=== PATIENT | female | born 1960 | race Caucasian/White ===

== ENCOUNTER 2018-06-14 07:59 | Day surgery (SDC) | payer OTHER ==
[2018-06-14] MEDS ORDERED: PROPOFOL 20 ML ONE ×2 (09:32)
--- NOTE | 2018-06-14 09:36 | PROC ---
Endoscopy Procedure Endoscopy procedure completed. Please see scanned procedure report.
[2018-06-14 11:24] VITALS: BP 146/71; PULSE 51; TEMP 97.8
--- NOTE | 2018-06-15 18:41 | PATH ---
Surgical Pathology Report Patient Name: JADA WATSON [facility]. Rec. #: [id number] /Age/Gender: 1960 (Age: 57) / F Account: [id number] Location: [facility]-ENDOSCOPY Taken: 06/14/2018 Received: 06/14/2018 Reported: 06/15/2018 Physicians: Lee Arana M.D. Specimen(s) Received A: BX ASCENDING COLON POLYP B: BX DESCENDING COLON POLYP C: BX DUODENUM SECOND PORTION D: BX STOMACH GASTRITIS Clinical History History of colon polyp, change in bowel habits, family history of gastric cancer Postoperative diagnosis: Colon polyps, gastritis Final Diagnosis A. ASCENDING COLON POLYP, BIOPSY: POLYPOID COLONIC MUCOSA WITH LYMPHOID AGGREGATES. B. DESCENDING COLON POLYP, POLYPECTOMY: TUBULAR ADENOMA. C. DUODENAL SECOND PORTION, BIOPSY: DUODENAL MUCOSA WITH MILD CHRONIC DUODENITIS. D. GASTRITIS, BIOPSY: GASTRIC MUCOSA WITH MILD CHRONIC GASTRITIS AND FOCAL DILATED GLANDS. IMMUNOSTAIN IS NEGATIVE FOR H. PYLORI ORGANISMS. Electronically Signed Johnnie Crow M.D. Gross Description A. Received in formalin, labeled "biopsy ascending colon polyp" are 2 mendosa, irregular portions of soft tissue measuring 0.2 and 0.4 cm. in greatest dimension. The specimens are submitted in toto in one cassette. B. Received in formalin, labeled "biopsy descending colon polyp" are 3 mendosa, irregular portions of soft tissue ranging from 0.1-0.4 cm. in greatest dimension. The specimens are submitted in toto in one cassette. C. Received in formalin, labeled "biopsy second portion of duodenum" is a mendosa, irregular portion of soft tissue measuring 0.7 cm. in greatest dimension. The specimen is submitted in toto in one cassette. D. Received in formalin, labeled "biopsy gastritis" are 2 mendosa, irregular portions of soft tissue averaging 0.4 cm. in greatest dimension. The specimens are submitted in toto in one cassette. 06/14/201806/14/2018
== END 2018-06-14 11:25 | disposition home or self-care (01) ==
LOC: JASU-ENDO 07:59
PROVIDERS: ATTEND Internal Medicine Gastroenterology
PROC: 0DBM8ZX Excision of Descending Colon, Via Natural or Artificial Opening Endoscopic, Diagnostic (ICD-10-PCS; 2018-06-14)
PROC: 0DB98ZX Excision of Duodenum, Via Natural or Artificial Opening Endoscopic, Diagnostic (ICD-10-PCS; 2018-06-14)
PROC: 0DB68ZX Excision of Stomach, Via Natural or Artificial Opening Endoscopic, Diagnostic (ICD-10-PCS; 2018-06-14)
PROC: 0DBK8ZX Excision of Ascending Colon, Via Natural or Artificial Opening Endoscopic, Diagnostic (ICD-10-PCS; principal; 2018-06-14 09:30)
DX: Z86.010 Personal history of colon polyps (principal); D12.2 Benign neoplasm of ascending colon; D12.4 Benign neoplasm of descending colon; K64.8 Other hemorrhoids; K29.80 Duodenitis without bleeding; K29.50 Unspecified chronic gastritis without bleeding; Z80.0 Family history of malignant neoplasm of digestive organs
CPT/HCPCS: 88305-TC; 88342-TC

== ENCOUNTER 2024-03-25 17:41 | Emergency (ER) | payer OTHER ==
[2024-03-25 17:46] VITALS: BP 131/67; PULSE 66; RESP 18; TEMP 98; BMI 29.4
[2024-03-25] MEDS ORDERED: ACETAMINOPHEN 500 MG TABLET (FP) ONE (20:23)
[2024-03-25] MEDS: ACETAMINOPHEN 500 MG TABLET (FP) PO ONE (20:30)
[2024-03-25] MEDS: IBUPROFEN 400 MG TABLET (FP) PO ONE (20:50)
[2024-03-25] MEDS ORDERED: IBUPROFEN 400 MG TABLET (FP) PO ONE (20:52)
== END 2024-03-25 20:57 | disposition home or self-care (01) ==
LOC: JER 17:41
DX: M54.50 Low back pain, unspecified (principal); S09.90XA Unspecified injury of head, initial encounter; M54.2 Cervicalgia; W01.198A Fall on same level from slipping, tripping and stumbling with subsequent striking against other object, initial encounter
CPT/HCPCS: 70450-TC; 72125-TC; 99284-25